=== PATIENT | male | born 1980 | race Caucasian/White ===

== ENCOUNTER 2018-08-20 17:45 | Outpatient (REF) | payer MEDICAID, SELFPAY ==
[2018-08-20 20:31] LABS: HCT 45.8 % (40.0-50.0); HGB 15.6 g/dL (13.5-17.5); Mean Corp. HGB Concentration 34.1 g/dL (32.0-36.0); Mean Corpuscular Hemoglobin 30.1 pg (27.0-33.0); Mean Corpuscular Volume 88.4 fL (80-95); Mean Platelet Volume 10.6 fL (8.0-11.0); Platelet Count 397 x1000/uL (130-400); RBC 5.18 m/cumm (4.50-6.00); RBC Distribution Width 12.1 % (11.8-14.1); White Blood Cell Count 8.23 k/cumm (4.4-10.8)
[2018-08-20 20:36] LABS: Mono Screening Negative (Negative)
[2018-08-22 11:36] LABS: HIV-1/2 Ag & Ab Screen Negative (NEGAT)
[2018-08-24 22:56] LABS: Bartonella Henselae IgG <1:128 titer (<1:128); Bartonella Henselae IgM <1:20 titer (<1:20); Bartonella Quintana IgG <1:128 titer (<1:128); Bartonella Quintana IgM <1:20 titer (<1:20)
== END 2018-08-20 18:05 ==
LOC: NCHCN 17:45
PROVIDERS: PCP Physician Assistant Medical; Visit Provider Internal Medicine
DX: R59.0 Localized enlarged lymph nodes (principal); R20.0 Anesthesia of skin
CPT/HCPCS: 85027; 87389; 86308; 86611

== ENCOUNTER 2021-05-30 15:00 | Outpatient (REF) | payer MEDICAID, SELFPAY ==
[2021-05-30 19:47] LABS: Abs Immature Grans 0.02 10^3/uL (0.0-0.06); Absolute Basophil Count 0.07 10^3/uL (0.0-0.2); Absolute Eosinophil Count 0.28 10^3/uL (0.0-0.7); Absolute Lymphocyte Count 2.25 10^3/uL (1.2-3.4); Absolute Monocyte Count 0.53 10^3/uL (0.1-0.8); Absolute Neutrophil Count 3.46 10^3/uL (1.2-6.7); Basophils % 1.1; Eosinophils % 4.2; HCT 46.5 % (40.0-50.0); HGB 15.7 g/dL (13.5-17.5); Immature Grans % 0.3; MCH 30.4 pg (27.0-33.0); MCHC 33.8 % (32.0-36.0); MCV 89.9 fL (80-95); MPV 10.4 fL (8.0-11.0); Neutrophils % 52.4; Nucleated RBC 0 %; Platelet Count 327 10^3/uL (130-400); RBC 5.17 10^6/uL (4.36-5.78); RDW 11.4 % (11.8-14.1); RDW-SD 37.7 fL; WBC 6.61 10^3/uL (4.4-10.8)
[2021-05-30 20:03] LABS: Hemoglobin A1C 5.4 % (<5.7)
[2021-05-30 20:09] LABS: ALT 23 U/L (16-63); AST 14 U/L (15-37); Albumin 4.4 g/dL (3.4-5.0); Alkaline Phosphatase 81 U/L (46-116); Anion Gap 7.3 mmol/L (3-11); BUN 11 mg/dL (7-18); Bilirubin, Total 0.4 mg/dL (0.2-1.0); CO2 29.7 mmol/L (21.0-32.0); CREATININE 1.1 mg/dL (0.70-1.30); Calcium 9.2 mg/dL (8.5-10.1); Chloride 105 mmol/L (98-107); Glucose 100 mg/dL (74-106); LDL CHOLESTEROL 156 mg/dL (<100); Potassium 4.5 mmol/L (3.5-5.1); Sodium 142 mmol/L (136-145); TSH (W/Ref FT4) 0.98 uIU/mL (0.36-3.74); Total Protein 7.6 g/dL (6.4-8.2)
[2021-06-01 12:12] LABS: COVID-19 RT-PCR UVMMC Result Negative (Negative)
== END 2021-05-30 15:01 | disposition home or self-care (01) ==
LOC: NCHCN 15:00
PROVIDERS: PCP Physician Assistant Medical; Visit Provider Physician Assistant
DX: R07.9 Chest pain, unspecified (principal); R06.02 Shortness of breath; Z83.3 Family history of diabetes mellitus; Z20.822 Contact with and (suspected) exposure to COVID-19
CPT/HCPCS: 80053; 83721; U0003; 83036; 84443; 85025

== ENCOUNTER 2023-04-02 11:06 | Day surgery (SDC) | payer MEDICAID, SELFPAY ==
--- NOTE | 2023-04-01 18:59 | W.ANESPRE ---
General Info Date of Service Date Performed: 04/02/23 Height: 5 ft 7 in Weight: 76 kg Body Mass Index (BMI): 26.2 Surgical Procedure: Operation Date: 04/02/23 13:10 Proposed Procedure Side Surgeon p Colonoscopy Jose Busch MD s Possible Hemorrhoid Banding Jose Busch MD Meds Allergies and Home Medications Allergies Allergy/AdvReac Type Severity Reaction Status Date / Time codeine AdvReac Intermediate Stomach Verified 04/02/23 11:41 issues hydrocodone AdvReac Intermediate Stomach Verified 04/02/23 11:41 issue monosodium glutamate AdvReac Intermediate Hives Verified 04/02/23 11:41 Home Medication Medication Instructions Recorded Hem Healer PO 10/22/22 cannabidiol 100 mg/mL oral solution 16 mg PO ONCE PRN 10/22/22 Current Visit Medications: Current Medications Generic Name Dose Route Start Last Admin Trade Name Freq PRN Reason Stop Dose Admin Ringer's Solution 1,000 mls @ 80 mls/hr 04/02/23 06:00 IV 05/01/23 23:59 INFUSION KIRTI IV Miscellaneous Supplies 1 each 04/02/23 06:00 Iv Access IV 05/01/23 23:59 DIRECTED KIRTI Sodium Chloride 0 ml 04/02/23 06:00 Normal Saline Flush 10 Ml Syr IV 05/01/23 23:59 PRN PRN Sodium Chloride 0 ml 04/02/23 06:00 Normal Saline 10 Ml Vial IJ 05/01/23 23:59 DIRECTED PRN Sterile Water 0 ml 04/02/23 06:00 Water,Injection,Sterile 10 Ml Vial IJ 05/01/23 23:59 DIRECTED PRN PFSH Active Problems Active Problems: Problem Status Onset Code Rectal pain K62.89 Cervical lymphadenopathy R59.0 Hand tingling R20.2 Impaired vision in both eyes H54.3 Abdominal pain, lower R10.30 Hematochezia K92.1 Hemorrhoids K64.9 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 Sialoadenitis 02/04/17 K11.20 Medical History Medical History Lactose intolerance Panic disorder Surgical History Surgical History Hx of lymph node excision Tobacco Smoking/Tobacco Use Status: Never Substance Use Substance use: Never Vital Signs and Lab Results Vital Signs Most Recent Vital Signs in EMR: Temp Pulse Resp BP Pulse Ox 36.1 C L 53 L 16 124/80 99 04/02/23 11:33 04/02/23 11:33 04/02/23 11:33 04/02/23 11:33 04/02/23 11:33 Lab Results Blood Type / Crossmatch: No Data to Display Complete Blood Count: No Data to Display Complete Metabolic Panel: No Data to Display Liver Function Panel: No Data to Display Coagulation Panel: No Data to Display Cardiac Panel: No Data to Display Arterial Blood Gas: No Data to Display Venous Blood Gas: No Data to Display Pancreas Panel: No Data to Display Thyroid Panel: No Data to Display Infectious Disease: No Data to Display Blood Cultures: No Data to Display Toxicology Panel: No Data to Display Anesthesia Assessment and Plan Anesthesia History Personal History: No History of Anesthesia Complications Family History: No Family History of Anesthesia Complications Exercise Tolerance Exercise Tolerance: Metabolic Equivalents>4 Cardiac & Pulmonary Exam Cardiac Exam: Normal S1/S2 Heart Sounds Pulmonary Exam: Clear Bilateral Breath Sounds Implantable Cardiac Device Does patient have a Pacemaker or an ICD?: No Airway Exam Known Difficult Airway: No Mallampati Class: 2 Mouth Opening: Normal (> 3cm) Thyromental Distance: Greater than 3 cm Neck Range of Motion: Full ROM Neck Circumference: Normal Teeth Condition: Normal Dentition ASA Classification ASA Score: ASA 2 Emergency Case?: No NPO Status NPO Status: NPO Clears >2 hours, Solids >8 hours Anesthesia Plan Resuscitation Status: Full Code Anesthesia Technique: General Anesthesia Airway Planned: Natural Airway Monitors Used: Standard Monitors Preoperative Comments:: 42 yo male for colo. Sig PMHx: panic disorder, never smoker, daily cannabis (3+ grams a day).
--- NOTE | 2023-04-01 23:02 | PDOC.DSDIS_ITS ---
Date of service: 04/02/23 Time of Service: 13:56 Discharge Plan Disposition Patient Disposition: Home Condition: Good Discharge Details Reason For Visit: Anorectal pain Attending Provider: Jose Busch Primary Care Provider: Malaika Cartagena Home Meds and New Rx's Prescriptions: Continued Hem Healer capsule PO Rx Instructions: Pt takes 2 in the morning and one at night. cannabidiol 100 mg/mL solution 16 mg PO ONCE PRN Discontinued polyethylene glycol 3350 17 gram/dose powder 238 g PO ONCE Qty: 238 0RF Rx Instructions: take per colonoscopy instructions bisacodyl [Dulcolax (bisacodyl)] 5 mg tablet,delayed release (DR/EC) 5 mg PO ONCE Qty: 4 0RF Rx Instructions: take per colonoscopy instructions Discharge Instructions Instructions: Rubber Band Ligation (DC) Additional Instructions: Matt, we were able to do your colonoscopy today without any difficulty. Your prep was excellent. I had great visualization. You have fairly large internal hemorrhoids, like we suspected. I did not see any other obvious signs of inflammatory diseases such as Crohn's disease or ulcerative colitis. However, I did perform random biopsies all along the length of your colon. I also found 1 small polyp. This is pretty typical for patient your age. I removed this polyp completely. I will send it off with the pathology to make sure it something simple. I put rubber bands on 2 of the 3 columns of your internal hemorrhoids. These were the major dominant ones. I try not to band all 3 columns at the same time, because that increases the complication rate. The bands may cause pain, pressure, or a sensation that you need to move your bowels. This is pretty typical. Generally, patients find relief with Tylenol, ibuprofen, some other medications, and sits baths. Formal sits baths can be purchased at the pharmacy, and are basically drop in tub sits the inside of your toilet. You can achieve the same effect by filling a standard bathtub with just a little bit of water. We recommend the patient's mix of water with some salts, or a few tablespoons of baking soda to paper processing machine helper in the comfort. Patients usually soak for about 15 to 20 minutes twice per day, and after each bowel movement if possible. Any [id number] medications for hemorrhoids can also be used to help with your discomfort. Creams such as Preparation H and pads like Tucks (which contain witch nishant), work great as topical treatments. Suppository is designed specifically for hemorrhoids would also be helpful. Like we talked about around the time of the procedure, if you prefer a prescription, I be more than happy to provide one. 1. If tolerated, consume a soft, low fiber diet for 1-2 days. 2[address] Do not drive, drink alcohol, operate machinery, make critical decisions, or do activities that require coordination or balance for 24 hours. 3. Because air was put into your colon during the procedure, expelling air from your rectum (passing gas or farting) is normal. 4. You may not have a bowel movement for 1-3 days because of the colonoscopy prep. This is normal. 5. Go directly to the emergency room if you notice any of the following: Develop chills (warm to touch), or if you have a thermometer and your temperature is above 101 Difficulty breathing or difficultly swallowing Persistent vomiting Severe abdominal pain, other than gas cramps Severe chest pain Black, tarry stools Any bleeding ? exceeding one tablespoon 6. Call your physician if the site where your intravenous was started becomes red, swollen, painful, and warm to touch. 7. Your physician has reviewed your pre-procedure medications. Please continue to take those medications as previously ordered. You will be given specific i nformation/education regarding any changes to your medications before leaving. Activity:: Activity as Tolerated Diet:: As Tolerated Discharge Orders Discharge Orders: Discharge Order (Routine); Ordered 04/01/23 Ordered By: Jose Busch DS: Diagnosis Discharge Diagnosis (1) Rectal pain: Status: Acute
--- NOTE | 2023-04-01 23:04 | W.COLOREPORT ---
Date of service: 04/02/23 Time of Service: 14:10 Colonoscopy Report Date of procedure: 04/02/23 Pre-op diagnosis general: Anorectal pain Post-op diagnosis procedure note: other (Internal hemorrhoids) Procedure: Colonoscopy with polypectomy, random biopsies, and banding of internal hemorrhoids Surgeon: Jose Busch Anesthesia Type: General:No Airway Estimated blood loss (mL): 15 Pathology: other (Random colon biopsies, random rectal biopsies) Complications: None Disposition: same day Indications: Matt is a 42-year-old male with intermittent anorectal pain of uncertain etiology. Prep: Miralax/Dulcolax Procedure Start Time: 13:24 Procedure End Time: 13:49 Retraction Time: 14 Findings: Internal hemorrhoids; 0.25 cm cecal polyp Procedure Description: After the induction of monitored anesthetic care, and with the patient in left lateral decubitus position, I began by performing an external anorectal exam.? Perineum and skin were normal, as was the anal verge.? External exam was normal. I saw no evidence of any fissures or perianal fistula..? Next, I performed a digital rectal exam.? I did not appreciate any abnormal findings.? Next, I advanced a colonoscope into the rectal vault.? I performed retroflexion.? There were large internal hemorrhoids.? Using insufflation, I then advanced the colonoscope beyond the rectal folds and into the sigmoid colon before advancing towards the cecum.? The quality of the prep was excellent.? The scope was noted to be in the cecum by identification of the ileocecal valve and appendiceal orifice.? There was a 0.25 cm sessile polyp in the cecum. I removed it with cold forceps polypectomy I then began withdrawing the colonoscope using repeated irrigation as necessary for full evaluation of the colonic mucosa. I perform random biopsies of the ascending, transverse, descending and sigmoid colons. This was all done with cold forceps. There was minimal bleeding from the sites. ?Once the scope was withdrawn to the level of the rectum, great care was taken to examine portions of the rectal folds.? I performed random biopsies of the rectum with cold forceps polyps as well. Next, I withdrew the colonoscope, and used a fiberoptic lit anoscope for examination of the internal hemorrhoids. There were prominent internal hemorrhoids on the right anterior and posterior columns. I performed suction band ligation of the right anterior and posterior columns in the usual fashion.
[2023-04-02 11:33] VITALS: BP 124/80; PULSE 53; RESP 16; TEMP 36.1; O2SAT 99
[2023-04-02] MEDS: Lactated Ringers 1,000 ML 80 ML IV (11:49)
[2023-04-02 12:19] VITALS: BMI 26.2
--- NOTE | 2023-04-02 13:36 | BOWEL_PTH ---
PATIENT: Matt Olguin LOC: [facility] U#:[id number] AGE/SX: 42/M ROOM: RE04/02/[address]: Jose Busch MD : 1980 BED: DIS: 04/02/2023 SPEC #: [id number] RECD: 04/02/23 16:47 STATUS: MANNY RE #: [id number] ABHINAV: 04/02/23 13:[address]: Jose Busch DEPT: Surgical Specimen RECD BY: Cordelia Crowell ENTERED: 04/02/23 16:48 SP TYPE: Bowel OTHR DR: Malaika Cartagena Tissues: 1 - BIOPSY BOWEL 2 - BIOPSY BOWEL 3 - BIOPSY BOWEL Procedures: GROSS AND MICRO LEVEL 4 Comments: [id number]
[2023-04-02 13:59] VITALS: BP 116/76; PULSE 73; RESP 18; TEMP 36.9; O2SAT 97
[2023-04-02] MEDS: Hyoscyamine 0.125 MG SL/ORAL/CHEW SL (14:10)
--- NOTE | 2023-04-02 14:17 | SUR.PHASEII ---
Pt insisting to get up to bathroom on return to DSU unit. This RN, Roxy Sigala RN and Merlin Gutierrez CRNA in room with pt and advised pt he was not safe to ambulate at this time due to anesthesia. Pt was back on the floor <5 minutes. Pt was offered bedside commode with RN assist or bedpan, pt refused. Pt continued to insist on utilizing the bathroom. Pt educated on the safety of ambulation after anesthesia and advised it is unsafe for him and the staff to ambulate to the bathroom on the unit at this time. Pt decided to use bedside commode. upon ambulation OOB to bedside commode pt began jumping around saying see, I'm fine and proceeded to jump and then start to lean/fall to one side. This RN asked pt to stop risky behavior and to please sit on the commode as instructed. Pt requested that technical staff assistant leave the bedside for privacy. Pt states he will not get up off of commode without assistance, but if I do I will just fall into the bed and it will be fine. RN placed call aldana at bedside and re-educated pt on need to ask for assistance with ambulation. pt verbalized understanding.
[2023-04-02 14:30] VITALS: BP 133/75; PULSE 54; RESP 16; TEMP 36.5; O2SAT 97
--- NOTE | 2023-04-02 14:31 | W.ANESPOSTOP ---
Postoperative Evaluation Date, Time and Location Date Performed: 04/02/23 Time Performed: 14:31 Patient Location: Day Surgery Unit Vital Signs Most Recent Imported Vital Signs: Most Recent Vital Signs Temp Pulse Resp BP Pulse Ox 36.9 C 73 18 116/76 97 04/02/23 13:59 04/02/23 13:59 04/02/23 13:59 04/02/23 13:59 04/02/23 13:59 Pain Score Most Recent Pain Score: Most Recent Pain Score Pain Level 0 04/02/23 11:33 Assessment Mental Status: Awake (Alert & Oriented to Patient Baseline) Airway and Respiratory Function: Patent airway with normal (patient baseline) respiratory exam Cardiovascular Function: Hemodynamically Stable Hydration Status: Adequately Hydrated Nausea & Vomiting: No Nausea or Vomiting Pain: Pain is tolerable per patient Peripheral Nerve Block: Patient did not receive a nerve block
[2023-04-02] MEDS: Acetaminophen 500 MG TAB 1000 MG PO (14:43)
== END 2023-04-02 15:20 | disposition home or self-care (01) ==
PROVIDERS: PCP Physician Assistant; Visit Provider Surgery
PROC: 0DJD8ZZ Inspection of Lower Intestinal Tract, Via Natural or Artificial Opening Endoscopic (ICD-10-PCS; CPT 45378; principal; 2023-04-02 13:00)
PROC: (CPT 45380; 2023-04-02 13:00)
DX: K62.89 Other specified diseases of anus and rectum (principal); K63.5 Polyp of colon; K64.8 Other hemorrhoids; K63.89 Other specified diseases of intestine
CPT/HCPCS: 45380; 46221; 88305; J2704; J3490